=== PATIENT | female | born 1975 ===

== ENCOUNTER 2020-06-29 15:22 | Emergency (ER) | payer BC ==
[~2020-06-29] VITALS: Ht 154.9 cm; Wt 63.7 kg
[2020-06-29] MEDS ORDERED: LORazepam 1MG TABLET PO ONE (15:30)
[2020-06-29] MEDS ORDERED: LORazepam 1MG TABLET ONE (15:35)
[2020-06-29 15:48] LABS: BASOPHILS % (AUTO) 1 % (0-1); EOSINOPHILS % (AUTO) 0 % (1-7); LYMPHOCYTES % (AUTO) 13 % (22-44); MEAN CORPUSCULAR HEMOGLOBIN 32.9 pg (27.0-34.8); MEAN CORPUSCULAR HGB CONC 34.8 g/dL (32.4-35.8); MEAN PLATELET VOLUME 7.7 fL (7.4-10.4); MONOCYTES % (AUTO) 4 % (2-9); NEUTROPHILS % (AUTO) 82 % (42-75); PLATELET COUNT 300 x10^3/uL (130-400); RED BLOOD COUNT 4.92 x10^6/uL (3.82-5.3); RED CELL DISTRIBUTION WIDTH 13.1 % (9.6-15.2)
--- NOTE | 2020-06-29 15:48 | NUR ---
PT BIB EMS FOR ANXIETY ATTACK. PT HAS BEEN HAVING A LOT OF STRESS AND HAS BEEN DRINKING A LOT RECENTLY. TODAY PT HAD HAND CRAMPING AND NUMBNESS AROUND HER MOUTH. PT TOOK HALF AN [employer] AT HOME [employer] [facility] ARRIVAL. PT EXHIBITING CARPOPEDAL SPASMS IN HANDS AND FEET UPON EMS ARRIVAL.
[2020-06-29 15:49] LABS: MD NO
[2020-06-29 15:59] LABS: ALBUMIN 4.6 g/dL (3.4-5.0); ANION GAP 11 mmol/L (5-15); CHLORIDE 102 mmol/L (98-107)
[2020-06-29 16:35] VITALS: BP 131/79
--- NOTE | 2020-06-29 16:41 | NUR ---
PT REC'VD DISCHARGE INSTRUCTIONS AND EDUCATION. PT HAD NO FURTHER QUESTIONS.
--- NOTE | 2020-06-29 16:52 | NUR ---
PT AMBULATED TO CT AREA, STEADY GAIT.
== END 2020-06-29 16:55 | disposition home or self-care (01) ==
LOC: ED 16:35
DX: F41.1 Generalized anxiety disorder (principal); R06.4 Hyperventilation; R94.31 Abnormal electrocardiogram [ECG] [EKG]
CPT/HCPCS: 36415; 80048; 82040; 84703; 85025; 93005; 99284